=== PATIENT | female | born 1980 | race Caucasian/White ===

== ENCOUNTER 2022-03-02 17:39 | Emergency (ER) | payer OTHER ==
[~2022-03-02] VITALS: Ht 160 cm; Wt 66.4 kg
[2022-03-02] MEDS ORDERED: KETOROLAC TROMETHAMINE 30 MG/ML VIAL IV STA (18:17)
[2022-03-02] MEDS ORDERED: ONDANSETRON HCL INJ 2MG/ML 2ML 2 MG/ML VIAL IV STA (18:17)
[2022-03-02] MEDS ORDERED: SODIUM CHLORIDE 0.9% 1000ML 1,000 ML IV STA (18:17)
[2022-03-02] MEDS ORDERED: SODIUM CHLORIDE 0.9% 1000ML 1,000 ML ONE (18:35)
[2022-03-02] MEDS ORDERED: birth control (18:56)
== END 2022-03-02 23:30 | disposition other institution (70) ==
LOC: FSED 17:46
DX: R10.31 Right lower quadrant pain (principal); N13.2 Hydronephrosis with renal and ureteral calculous obstruction; R11.2 Nausea with vomiting, unspecified; R31.9 Hematuria, unspecified
CPT/HCPCS: 74176; 80048; 80076; 81003; 81025; 85025; 96374; 96375; 99284; J1885; J2405; J7030

== ENCOUNTER 2024-12-31 11:47 | Emergency (ER) | payer SELFPAY ==
[~2024-12-31] VITALS: Ht 160 cm; Wt 66.2 kg
[~2024-12-31 11:47] MED LIST: birth control
[2024-12-31] MEDS ORDERED: NAPROXEN375 MG PO (12:09)
[2024-12-31] MEDS: KETOROLAC TROMETHAMINE 30 MG/ML VIAL IM STA (12:53)
[2024-12-31 13:53] VITALS: PULSE 57; RESP 18; TEMP 98.6; O2SAT 98
== END 2024-12-31 13:56 | disposition home or self-care (01) ==
LOC: ER 12:04
DX: S13.4XXA Sprain of ligaments of cervical spine, initial encounter (principal); V43.52XA Car driver injured in collision with other type car in traffic accident, initial encounter; Y92.488 Other paved roadways as the place of occurrence of the external cause
CPT/HCPCS: 99284; J1885